=== PATIENT | female | born 1950 ===

== ENCOUNTER → 2016-04-12 | Outpatient (CLI) | payer BC | LOC: MC.RAD 03-24 10:20 | DX: D24.2 Benign neoplasm of left breast (principal); D24.1 Benign neoplasm of right breast ==

== ENCOUNTER → 2017-06-21 | Outpatient (CLI) | payer BC | LOC: MC.RAD 09:40 | DX: Z12.31 Encounter for screening mammogram for malignant neoplasm of breast (principal) ==

== ENCOUNTER → 2018-06-22 | Outpatient (CLI) | payer BC | LOC: MC.RAD 10:38 | DX: Z12.31 Encounter for screening mammogram for malignant neoplasm of breast (principal) ==